=== PATIENT | female | born 1990 | race Caucasian/White ===

== ENCOUNTER 2018-11-11 01:20 | Emergency (ER) | payer SELFPAY ==
[~2018-11-11] VITALS: Ht 165.1 cm; Wt 59.9 kg
[2018-11-11 01:27] VITALS: BP 136/74
--- NOTE | 2018-11-11 01:27 | NUR ---
to bed # 5 ambulatory, report given to Carlito Vaughn
--- NOTE | 2018-11-11 01:35 | NUR ---
PT BIB SELF FOR VAGINA PAIN X 1 WEEK. PT STATES THAT SHE HAS BURNING PAIN AT 10/10 THAT INCRESES WITH URINATION. PT REPORTS THICK [place]IT[place] GREEN DISCHARGE WITH SLIGHT ODOR. PT DENIES N/V/D OR FEVER. PT DENEIS UNPROTECTED SEX. PT REPORTS DIZZYNESS WHEN STANDING. ER MD TO SEE PT. BED RAILS UP, BED IN LOWEST POSITION, WILL CONTINUE TO MONITOR.
--- NOTE | 2018-11-11 02:14 | NUR ---
ER MD GIVING PELVIC EXAM AT THIS TIME.
[2018-11-11] MEDS ORDERED: KETOROLAC 30 MG/ML VIAL IM ONE (02:20)
[2018-11-11] MEDS ORDERED: LIDOCAINE JELLY 2% 30 ML TUBE TP ONE (02:20)
--- NOTE | 2018-11-11 02:22 | NUR ---
WALKED WET [place] TO LAB.
[2018-11-11 02:54] LABS: APPEARANCE,URINE SL CLOUDY (CLEAR); BILIRUBIN,URINE NEGATIVE (NEGATIVE); BLOOD, URINE NEGATIVE (NEGATIVE); COLOR,URINE YELLOW (YELLOW); LEUKOCYTE ESTERASE ,URINE TRACE (NEGATIVE); NITRITE, URINE NEGATIVE (NEGATIVE); UGLUCOSE NEGATIVE (NEGATIVE)
[2018-11-11 02:55] LABS: RBC,URINE 0-5 (RARE) /HPF (0-5); WBC,URINE 16-25 (MOD) /HPF (0-5)
[2018-11-11 03:32] VITALS: BP 125/76
--- NOTE | 2018-11-11 03:32 | NUR ---
Patient discharged with v/s stable. Written and verbal after care instructions given and explained. Patient alert, oriented and verbalized understanding of instructions. Ambulatory with steady gait. All questions addressed prior to discharge. ID band removed. Patient advised to follow up with PMD. Rx of PHENAZOPYRIDINE HYDROCHLORIDE, FLAGYL, ACYCLOVIR, AND CIPRO given. Patient educated on indication of medication including possible reaction and side effects. Opportunity to ask questions provided and answered.
[2018-11-13 06:10] LABS: CHLAMYDIA TRACHOMATIS AMP DNA Negative (Negative)
== END 2018-11-11 03:32 | disposition home or self-care (01) ==
LOC: MED 01:20
DX: N76.0 Acute vaginitis (principal); B96.89 Other specified bacterial agents as the cause of diseases classified elsewhere; N39.0 Urinary tract infection, site not specified
CPT/HCPCS: 36415; 81001; 81025; 87086; 87186; 87210; 87491; 96372; 99283; J1885